=== PATIENT | male | born 1945 | race Caucasian/White ===

== ENCOUNTER 2021-01-03 10:11 | Outpatient (RCR) | payer MEDICARE, OTHER, SELFPAY | END 2021-01-03 23:59 | LOC: IMMUN 10:11 | PROVIDERS: PCP Internal Medicine; Referring Provider Family Medicine; Visit Provider Family Medicine | DX: Z23 Encounter for immunization (principal) | CPT/HCPCS: 0011A; 0012A ==

== ENCOUNTER 2021-01-08 17:06 | Emergency (ER) | payer MEDICARE, OTHER, SELFPAY ==
[2021-01-08 17:08] VITALS: BP 173/97; PULSE 76; RESP 15; TEMP 35.8; O2SAT 100; BMI 22.3
--- NOTE | 2021-01-08 17:28 | CT_ITS ---
STUDY: CT ABDOMEN AND PELVIS WITHOUT CONTRAST REASON FOR EXAM: Male, 75 years old. Left-sided abdominal pain. RADIATION DOSAGE (If Supplied By Facility): CTDIvol = ( 5.98 ) mGy, DLP = ( 268.31 ) mGycm TECHNIQUE: Transaxial images were obtained from the dome of the diaphragm to the symphysis pubis without oral contrast, and without intravenous contrast. Sagittal and coronal images were reconstructed. Individualized dose optimization techniques were used for this CT. COMPARISON: None. FINDINGS: The visualized lung bases are unremarkable. The visualized portions of the heart are within normal limits. There is a 6.5 x 6.2 x 5.8 cm cyst in segment 8 of the liver. Other small cysts are seen in segment 6. The liver is otherwise unremarkable. The gallbladder is well distended but otherwise unremarkable. There is no biliary ductal dilatation. Normal spleen. Normal pancreas. Normal bilateral adrenal glands. Normal right kidney. Normal right ureter Multiple small calcifications within the left kidney. This is most marked in the lower pole with the largest calcification measures 4 mm. There is a moderate to severe hydronephrosis and ureteral dilatation to just above the UVJ where there is a 7 mm calcification in the distal ureter. Normal visualized stomach. Normal small intestine. Normal colon. The appendix is visualized and appears normal. There is diffuse atherosclerotic calcification of the abdominal aorta, without a demonstrated aneurysm. Normal inferior vena cava. There is a small right psoas muscle. Distally, just above the inguinal region, it contains a fluid density area is seen on image 76 of series 2. Normal urinary bladder. The prostate is enlarged with central calcifications. Prominent seminal vesicles. There phleboliths in the pelvis without lymphadenopathy. No free air or free fluid is seen within the peritoneal cavity. There is a left inguinal hernia. There is evidence left hydrocele. Abdominal wall appears otherwise grossly normal there are degenerative changes and levoscoliosis of the thoracolumbar spine. There are degenerative changes left hip and evidence of a right total hip arthroplasty. CT/Abdomen/Pelvis without Cont IMPRESSION: 1. Calcification in the distal left ureter with moderate to marked left hydronephrosis. 2. Nonobstructing left renal calculi. 3. Enlarged prostate. 4. Large right hepatic cyst. 5. Left inguinal hernia. There is an associated left hydrocele. 6. Levoscoliosis and degenerative changes of the spine. Electronically Signed: Doug Yeager DO at 18:24 EST Tel [phone], Service support ,
--- NOTE | 2021-01-08 17:30 | ED.VIS.GEN ---
History of Present Illness Chief Complaint: Flank Pain Narrative: Patient presents with flank pain on the left for the past 2 days he is found to have some hematuria earlier on he has no fever chills cough or congestion the pain does radiate into his left lower abdominal pain. No testicle pain. Past medical history: Crohn's disease otherwise unremarkable Medications: Reviewed, mostly vitamins noncontributory Social history: Contributory Review of systems: All systems negative except as indicated General: Denies: Fever Eyes: Denies: Visual changes - bilaterally ENT: Denies: Rhinorrhea, Sore throat Cardiovascular: Denies: Chest pain Respiratory: Denies: Dyspnea, Cough Gastrointestinal: Abdominal pain as in HPI Back: Flank pain as in HPI Genitourinary: Denies: Dysuria Musculoskeletal: Denies: Myalgias Skin: Denies: Rash Neurological: Denies: Headache, no focal weakness Psych: Reports: negative Hematologic: Denies: Easy bruising, Easy bleeding Physical exam General: Well nourished, Well developed, he appears relatively comfortable in bed Head: Normocephalic, Atraumatic Eyes: Conjunctiva not pale ENT: Moist mucous membranes Neck: Supple, Nontender, No lymphadenopathy Cardiovascular: Regular rate, Regular rhythm Respiratory: No distress, CTA bilaterally Abdomen: Soft, left lower abdominal tenderness without any guarding or rebound Back: No spinal tenderness. Most of the pain is in the left CVA region Extremities: Nontender, No edema Skin: Normal color, No rash Neurological: Alert, Normal Strength, Normal Sensation Psychological: Normal affect Past Medical History - Allergies and Home Meds Allergies/Adverse Reactions: Allergies No Known Allergies Allergy (Verified 01/08/21 17:07) Primary Care Physician: Karin Holden MD [Primary Care Provider] - 3-5 Days Physical Exam Vital Signs/Narrative: Vital Signs Temp Pulse Resp BP Pulse Ox 01/08/21 17:08 96.5 F L 76 15 173/97 H 100 Diagnostic/Tx/Re-eval - Medical Decision Making Patient is found to have a 7 mm obstructing stone. He has hematuria but no UTI regardless he is on antibiotics per PCP. His pain is controlled I discussed with Dr. Dutta who can see the patient in the office tomorrow to plan for likely surgery. I will discharge the patient with analgesia. ED Disposition - Plan for ED Patient: Disposition: Home or Assisted Living Diagnosis: Kidney stone Instructions: ED Kidney Stone w/ Colic Prescriptions: Oxycodone HCl/Acetaminophen [Percocet 5/325] 1 tab PO Q6H PRN PRN 3 Days #12 tab PRN Reason: Pain Transmission Status: Received by [id number] Referrals: Abner Dutta MD [STAFF PHYSICIAN] - 1 Day
[2021-01-08] MEDS: Morphine 2 MG/ML Syringe IV (17:40)
[2021-01-08] MEDS: Ondansetron 4 MG/2 ML Vial IV (17:40)
[2021-01-08 17:50] LABS: Absolute Lymphocyte Count 2.25 X10^3/uL (0.83-4.51); Absolute Neutrophil Count 5.7 X10^3/uL (2.0-7.7); Basophil# 0.11 X10^3/uL; Basophil% 1.1 % (0-1); Eosinophil# 0.48 X10^3/uL; Hematocrit 43.3 % (40-54); Hemoglobin 13.7 g/dL (13.0-16.5); Lymphocyte # 2.25 X10^3/ul (4.0); Lymphocyte % 23.5 % (19-41); Mean Corp Hgb Conc 31.6 g/dL (32-36); Mean Corpuscular Hgb 28.2 pg (27.0-32.0); Mean Corpuscular Volume 89.3 fL (80-94); Mean Platelet Vol. 10.3 fl (6.2-12.0); Monocyte# 0.97 X10^3/uL; Monocyte% 10.1 % (0-10); NRBC Flagged by Analyzer 0 % (0-5); Neutrophil # 5.74 X10^3/uL (2.7-7.7); Neutrophil % 60.1 % (47-70); Platelet Count 185 K/mm3 (150-450); RBC Distribution Width CV 15.7 % (11.6-14.6); RBC Distribution Width SD 51.8 fl (35.1-43.9); Red Blood Count 4.85 M/mm3 (4.6-6.2); White Blood Count 9.6 K/mm3 (4.4-11.0)
[2021-01-08 18:13] LABS: ALB/GLOB Ratio 1.1 RATIO (0.9-2.4); AST(SGOT) 27 U/L (15-37); Alanine Aminotransfer ALT/SGPT 20 U/L (16-61); Albumin, Serum 3.7 g/dL (3.2-5.0); Alkaline Phosphatase 76 U/L (45-117); Anion Gap 5 (5-15); BUN 20 mg/dL (7-18); BUN/Creat Ratio 17.5 RATIO (10-20); Chloride 110 mmol/L (98-107); Creatinine, Serum 1.14 mg/dL (0.70-1.30); EST Glomerular Filtration Rate 67 mL/min (>60); Est Glom Filt Rate - Afr Amer 81 mL/min (>60); Estimated Creatinine Clearance 52.66 ml/min; Globulin 3.4 g/dL (2.2-4.2); Glucose 105 mg/dL (74-106); Lipase 139 U/L (73-393); Potassium 4.7 mmol/L (3.5-5.1); Protein, Total 7.1 g/dL (6.4-8.2); Sodium Level 142 mmol/L (136-145)
[2021-01-08 18:18] LABS: Bacteria 0 SEEN /hpf (None Seen); Mucous, Urine 0 SEEN /hpf (<or=2+); White Blood Cells 0 SEEN /hpf (0-5)
[2021-01-08 18:20] LABS: Color, Urine Yellow (Yellow); Glucose, Dipstick Normal (Normal); Ketone-Dipstick Negative (Negative); Leukocyte Esterase-Dipstick Negative /ul (Negative); Nitrite-Dipstick Negative (Negative); Occult Blood-Urine 50 /ul (Negative); Protein-Dipstick Negative (Negative); Urine Bilirubin Dipstick Negative (Negative); Urine Clarity Cloudy (Clear); Urine Urobilinogen Normal (Normal)
[2021-01-08 18:26] LABS: Amorphous Sediment 3+ PHOS; Red Blood Cells-Urine 0-5 SEEN /hpf (0-5); Squamous Epithelial Cells - UA 0-5 SEEN /hpf (0-5)
[2021-01-08] MEDS: Ketorolac 15 MG/ML Vial IV (19:10)
[2021-01-08] MEDS: HYDROmorphone 1 MG/ML Syringe IV (19:10)
== END 2021-01-08 19:36 | disposition home or self-care (01) ==
PROVIDERS: Emergency Provider Emergency Medicine; PCP Internal Medicine
DX: N20.0 Calculus of kidney (principal)
CPT/HCPCS: 74176; 80053; 81001; 83690; 85025; 96374; 96375; 99282; A4216; J2405

== ENCOUNTER → 2021-01-09 10:52 | Outpatient (CLI) | payer MEDICARE, OTHER, SELFPAY ==
[2021-01-08 17:08] VITALS: BMI 22.3
--- NOTE | 2021-01-09 10:56 | EKG12_ITS ---
Test Reason : PREOP Blood Pressure : / mmHG Vent. Rate : 068 BPM Atrial Rate : 068 BPM P-R Int : 146 ms QRS Dur : 098 ms QT Int : 380 ms P-R-T Axes : 061 075 067 degrees QTc Int : 404 ms Normal sinus rhythm Normal ECG Confirmed by MAURILIO BRADFORD, MARLA ([id number]), editor producer GORGE MORAN ([id number]) on 01/10/2021 8:58:54 AM Referred By: HAILEY Confirmed By:MARLA THORPE MD
== END ==
PROVIDERS: PCP Internal Medicine; Visit Provider Urology
DX: Z01.810 Encounter for preprocedural cardiovascular examination (principal); Z20.822 Contact with and (suspected) exposure to COVID-19
CPT/HCPCS: 87426; 93005; C9803

== ENCOUNTER 2021-01-13 00:09 | Observation (INO) | payer MEDICARE, OTHER, SELFPAY ==
[2021-01-13 00:09] VITALS: BP 163/90; PULSE 112; RESP 16; TEMP 36.4; O2SAT 97; BMI 22.8
--- NOTE | 2021-01-13 00:25 | ED.DCSUM_ITS ---
History of Present Illness Chief Complaint: Complaint Informant: Patient Onset: Today Narrative: Patient is a 75-year-old male presenting with difficulty urinating. Patient had lithotripsy today with Dr. Dutta has stent placed. Since the procedure at 2 PM he is not been able to void. He feels pressure and the need to urinate. He has had a small amount of blood from his penis. He has associated discomfort. He denies any history of urinary retention. He denies any significant history of any prostate abnormalities. No other complaints at this time. Past Medical History - Allergies and Home Meds Allergies/Adverse Reactions: Allergies No Known Allergies Allergy (Verified 01/13/21 00:13) Past Medical History: - - Crohn's disease, kidney stones Surgical History: colectomy, - - Lithotripsy Smoking Status: Never smoker Review of Systems General: Denies: Chills, Fever, Sweats Eyes: Denies: Visual changes - bilaterally, Diplopia ENT: Denies: Rhinorrhea, Sore throat Cardiovascular: Denies: Chest pain, Palpitations Respiratory: Denies: Dyspnea, Cough, Dyspnea on exertion Gastrointestinal: Reports: Abdominal pain. Denies: Nausea, Vomiting, Diarrhea, Melena, Hematochezia Genitourinary: Reports: Hematuria, - - Urinary retention. Denies: Dysuria, Frequency Musculoskeletal: Denies: Back pain, Extremity Pain Skin: Denies: Rash, Wounds Neurological: Denies: Headache, Weakness, Numbness Physical Exam Vital Signs/Narrative: Vital Signs Temp Pulse Resp BP Pulse Ox 01/13/21 00:09 97.6 F L 112 H 16 163/90 H 97 Inital Vital Signs reviewed: Yes General: Well developed, No Acute Distress Head: Normocephalic, Atraumatic Eyes: Perrl, EOMI ENT: Moist mucous membranes, No rhinorrhea Neck: Supple, Nontender Cardiovascular: Regular rate, Regular rhythm, No murmurs Respiratory: No distress, CTA bilaterally, Chest nontender Abdomen: Soft, Nondistended, Normal bowel sounds, Tender - Suprapubic region Back: Nontender, Normal Inspection. Negative for: CVA tenderness Extremities: Nontender, No edema Skin: Normal color, No rash Neurological: Alert, Oriented x3, Cranial nerves II-XII grossly intact, Normal Strength, Normal Sensation Psychological: Normal affect, Normal Mood Diagnostic/Tx/Re-eval Laboratory Data 01/13/21 01/13/21 01/13/21 00:30 00:40 00:40 WBC Cancelled Corrected WBC Cancelled RBC Cancelled Hgb Cancelled Hct Cancelled MCV Cancelled MCH Cancelled MCHC Cancelled RDW Std Deviation Cancelled RDW Coeff of Tiffany Cancelled Plt Count Cancelled MPV Cancelled Immature Gran % (Auto) Cancelled Neut % (Auto) Cancelled Lymph % (Auto) Cancelled [place] % (Auto) Cancelled Eos % (Auto) Cancelled Baso % (Auto) Cancelled Absolute Neuts (auto) Cancelled Absolute Lymphs (auto) Cancelled Total Counted Cancelled Neutrophils % (Manual) Cancelled Band Neutrophils % Cancelled Lymphocytes % (Manual) Cancelled Monocytes % (Manual) Cancelled Eosinophils % (Manual) Cancelled Basophils % (Manual) Cancelled Metamyelocytes % Cancelled Myelocytes % Cancelled Promyelocytes % Cancelled Blast Cells % Cancelled Plasma Cell % (Manual) Cancelled Other Cells % Cancelled Nucleated RBC % Cancelled Nucleated RBCs/100 WBC Cancelled Differential Comment Cancelled Diff Path Review Cancelled Hypersegmented Neuts Cancelled Atypical Lymphocytes Cancelled Reactive Lymphocytes Cancelled Smudge Cells Cancelled Toxic Granulation Cancelled Toxic Vacuolation Cancelled Dohle Bodies Cancelled Navarro Rods Cancelled Platelet Estimate Cancelled Plt Morphology Comment Cancelled RBC Morphology Cancelled Polychromasia Cancelled Hypochromasia Cancelled Poikilocytosis Cancelled Basophilic Stippling Cancelled Anisocytosis Cancelled Microcytosis Cancelled Macrocytosis Cancelled Spherocytes Cancelled Sickle Cells Cancelled Target Cells Cancelled Tear Drop Cells Cancelled Ovalocytes Cancelled Stomatocytes Cancelled [place]ocha[place] Bodies Cancelled [place] Cells Cancelled Bite Cells Cancelled Crenated Cell Cancelled Acanthocytes (Spur) Cancelled Rouleaux Cancelled Schistocytes Cancelled Sodium 133 L Potassium 5.5 H Chloride 102 Carbon Dioxide 22.0 Anion Gap 9 BUN 32 H Creatinine 2.43 H Estim Creat Clear Calc 25.37 Est GFR (MDRD) Af Amer 34 L Est GFR (MDRD) Non-Af 28 L BUN/Creatinine Ratio 13.2 Glucose 138 H Calcium 9.1 Urine Color Yellow Urine Clarity Cloudy Urine pH 6.0 Ur Specific [place] 1.010 Urine Protein 30 H Urine Glucose (UA) Normal Urine Ketones Negative Urine Occult Blood 250 H Urine Nitrite Negative Urine Bilirubin Negative Urine Urobilinogen Normal Ur Leukocyte Esterase 100 H Urine RBC 10-25 SEEN Urine WBC 50-100 SEEN Ur Squamous Epith Cells 0 SEEN Urine Bacteria 1+ Urine Mucus 0 SEEN - Medical Decision Making Patient evaluated for decreased urination. Patient had lithotripsy with stent placements performed by urology today. Since his procedure he is not been able to urinate. He has discomfort in his lower abdomen. He notes he really has not had anything to drink since yesterday because he was kept n.p.o. after midnight. Patient denies any other complaints at this time. Clemens catheter is placed for concern of acute urinary retention given his recent anesthesia. Patient does not have a significant amount of urine output and it is quite dark. I did check BMP which is remarkable for an elevated creatinine. Is more than double what his creatinine was 2 days ago. Patient does appear dehydrated. He is given IV fluids. His CBC does show leukocytosis however not sure how much of this is reactive from his recent procedure versus infectious. Given the leukocytosis however I did cover with a dose of IV Rocephin. Given that patient does meet SIRS criteria I did add on a lactate as well as blood cultures. I suspect the source is urine. Urinalysis shows 100 esterase and 50-100 white blood cells with 1+ bacteria but again, this could be reactive given his procedure earlier today. Case is discussed with his urologist who is agreeable with admission. Urine culture sent. Patient is agreeable with plan of care. He is stable for the general medical floor at time of disposition. ED Disposition - Plan for ED Patient: Disposition: Acute Care Hospital [facility] Diagnosis: LB (acute kidney injury)
[2021-01-13 00:34] LABS: Mucous, Urine 0 SEEN /hpf (<or=2+); Squamous Epithelial Cells - UA 0 SEEN /hpf (0-5)
[2021-01-13 00:36] LABS: Color, Urine Yellow (Yellow); Glucose, Dipstick Normal (Normal); Ketone-Dipstick Negative (Negative); Leukocyte Esterase-Dipstick 100 /ul (Negative); Nitrite-Dipstick Negative (Negative); Occult Blood-Urine 250 /ul (Negative); Protein-Dipstick 30 mg/dl (Negative); Urine Bilirubin Dipstick Negative (Negative); Urine Clarity Cloudy (Clear); Urine Urobilinogen Normal (Normal)
[2021-01-13 00:52] VITALS: RESP 18
[2021-01-13 00:53] LABS: Bacteria 1+ /hpf (None Seen); Red Blood Cells-Urine 10-25 SEEN /hpf (0-5); White Blood Cells 50-100 SEEN /hpf (0-5)
[2021-01-13 01:05] LABS: Anion Gap 9 (5-15); BUN 32 mg/dL (7-18); BUN/Creat Ratio 13.2 RATIO (10-20); Calcium,Total 9.1 mg/dL (8.5-10.1); Chloride 102 mmol/L (98-107); Creatinine, Serum 2.43 mg/dL (0.70-1.30); EST Glomerular Filtration Rate 28 mL/min (>60); Est Glom Filt Rate - Afr Amer 34 mL/min (>60); Estimated Creatinine Clearance 25.37 ml/min; Glucose 138 mg/dL (74-106); Potassium 5.5 mmol/L (3.5-5.1); Sodium Level 133 mmol/L (136-145)
[2021-01-13 01:58] LABS: Absolute Lymphocyte Count 0.64 X10^3/uL (0.83-4.51); Absolute Neutrophil Count 12.5 X10^3/uL (2.0-7.7); Basophil# 0.02 X10^3/uL; Basophil% 0.1 % (0-1); Hematocrit 40.8 % (40-54); Hemoglobin 13.4 g/dL (13.0-16.5); Lymphocyte # 0.64 X10^3/ul (4.0); Lymphocyte % 4.6 % (19-41); Mean Corp Hgb Conc 32.8 g/dL (32-36); Mean Corpuscular Hgb 29.1 pg (27.0-32.0); Mean Corpuscular Volume 88.7 fL (80-94); Mean Platelet Vol. 10.1 fl (6.2-12.0); Monocyte# 0.79 X10^3/uL; Monocyte% 5.6 % (0-10); NRBC Flagged by Analyzer 0 % (0-5); Neutrophil # 12.53 X10^3/uL (2.7-7.7); Neutrophil % 89.3 % (47-70); Platelet Count 184 K/mm3 (150-450); RBC Distribution Width CV 15.7 % (11.6-14.6); RBC Distribution Width SD 51.1 fl (35.1-43.9)
[2021-01-13] MEDS: 0.9% Normal Saline 1,000 ML 999 ML IV (02:03)
[2021-01-13 02:06] VITALS: BP 151/84; PULSE 89; RESP 16; TEMP 36.6; O2SAT 99
[2021-01-13] MEDS: Ceftriaxone 1 GM/50 ML BAG IV (03:27)
[2021-01-13] MEDS: 0.9% Normal Saline 1,000 ML 150 ML IV (03:58)
[2021-01-13 04:04] VITALS: BMI 22.1
[2021-01-13 04:12] VITALS: BMI 22.1
[2021-01-13 04:17] VITALS: BP 141/87; PULSE 97; RESP 16; TEMP 36.8; O2SAT 99
[2021-01-13] MEDS: Acetaminophen 500 MG Tablet PO (04:32)
[2021-01-13 04:58] LABS: Lactic Acid 1.6 mmol/L (0.4-1.9)
[2021-01-13 06:40] LABS: Absolute Lymphocyte Count 1.23 X10^3/uL (0.83-4.51); Absolute Neutrophil Count 12.7 X10^3/uL (2.0-7.7); Basophil# 0.03 X10^3/uL; Basophil% 0.2 % (0-1); Eosinophil# 0.01 X10^3/uL; Eosinophils% 0.1 % (0-5); Hemoglobin 11.8 g/dL (13.0-16.5); Lymphocyte # 1.23 X10^3/ul (4.0); Lymphocyte % 7.9 % (19-41); Mean Corp Hgb Conc 31.9 g/dL (32-36); Mean Corpuscular Hgb 28.4 pg (27.0-32.0); Mean Corpuscular Volume 89.2 fL (80-94); Mean Platelet Vol. 9.8 fl (6.2-12.0); Monocyte# 1.53 X10^3/uL; Monocyte% 9.9 % (0-10); NRBC Flagged by Analyzer 0 % (0-5); Neutrophil # 12.67 X10^3/uL (2.7-7.7); Neutrophil % 81.5 % (47-70); POSITIVE DIFFERENTIAL YES; Platelet Count 165 K/mm3 (150-450); RBC Distribution Width CV 15.9 % (11.6-14.6); RBC Distribution Width SD 51.9 fl (35.1-43.9); Red Blood Count 4.15 M/mm3 (4.6-6.2); White Blood Count 15.5 K/mm3 (4.4-11.0)
[2021-01-13 06:57] LABS: Differential Indicated SCAN CRITERIA MET
[2021-01-13 07:04] LABS: Anion Gap 6 (5-15); BUN 23 mg/dL (7-18); BUN/Creat Ratio 14.8 RATIO (10-20); Calcium,Total 8.4 mg/dL (8.5-10.1); Chloride 110 mmol/L (98-107); Creatinine, Serum 1.55 mg/dL (0.70-1.30); EST Glomerular Filtration Rate 47 mL/min (>60); Est Glom Filt Rate - Afr Amer 57 mL/min (>60); Estimated Creatinine Clearance 38.46 ml/min; Glucose 115 mg/dL (74-106); Potassium 4.8 mmol/L (3.5-5.1); Sodium Level 140 mmol/L (136-145)
--- NOTE | 2021-01-13 08:59 | HP.PCM_ITS ---
History of Present Illness Date of Admission: 01/13/21 Chief Complaint: Dehydration urinary retention high The patient is a 75 year old male who underwent lithotripsy yesterday presented to the hospital with retention of urine his creatinine is up to 2.5 but this morning the creatinine down to 1.5 urine is in a nice and clear color good urine output he looks stable. Past Medical History Allergies No Known Allergies Allergy (Verified 01/13/21 00:13) Home Medications: Ambulatory Orders Medication Instructions Recorded Cholecalciferol (Vitamin D3) 10 mcg PO DAILY 01/08/21 [Vitamin D3] Multivitamin 1 ea PO DAILY 01/08/21 Sulfamethoxazole/Trimethoprim 1 ea PO DAILY 01/08/21 [Sulfamethoxazole-Tmp Ds Tablet] Oxycodone [Oxyir] 5 mg PO Q4H PRN PRN 01/13/21 Surgical History: colectomy, - - Lithotripsy Smoking Status: Never smoker Tobacco Use: Non-smoker Review of Systems Constitutional: Denies: Chills, Fever, Weight Change HEENT: Denies: Head Aches, Sinus Congestion, Sinus Drainage Cardiovascular: Denies: Chest Pain, Palpitations Respiratory: Denies: Cough, Shortness of breath at rest, Sputum production Gastrointestinal: Denies: Abdominal Pain, Nausea, Vomiting Genitourinary: Denies: Dysuria Musculoskeletal: Denies: Joint Pain, Joint Tenderness Skin: Denies: Rash, Wounds Neurological: Denies: Numbness, Tingling, Focal weakness Psychiatric: Denies: Anxiety, Depression, Homicidal Ideations, Suicidal Ideations Hematologic/ Lymphatic: Denies: Easy Bruising, Easy Bleeding VTE Information - Inpt Only VTE Present on Admission: No VTE Mechan Device Prophylaxis: SCD's Patient Problems: Active and Suspected Problems LB (acute kidney injury) (Acute) - Physical Exam Vitals/I&O's: Vital Signs Temp Pulse Resp BP Pulse Ox 98.3 F 97 16 141/87 H 99 01/13/21 04:17 01/13/21 04:17 01/13/21 04:17 01/13/21 04:17 01/13/21 04:17 Oxygen Delivery Method Room Air Weight: 66.026 kg Body Mass Index (BMI) 22.1 Intake and Output for Last 24 Hours 01/11/21 01/12/21 01/13/21 23:59 23:59 23:59 Intake Total 1050 / 1050 Balance 1050 / 1050 General: Alert, Oriented x3, Cooperative HEENT: Atraumatic, PERRLA, EOMI, Normocephalic Neck: Supple, No JVD, Negative Carotid Bruits Lungs: Clear to auscultation, Normal air movement Cardiovascular: Regular rate, No murmurs Abdomen: Bowel Sounds Present, Soft, Non Tender Extremities: No edema, Capillary Refill Less than 3 Seconds Skin: No rashes, No breakdown Musculoskeletal: No Tenderness to Palpation of Joints or Extremities Neurological: Cranial nerves II-XII grossly intact Psych/Mental Status: Normal Affect, Appropriate Laboratory Results 01/13/21 00:30: Urine Color Yellow, Urine Clarity Cloudy, Urine pH 6.0, Ur Specific [place] 1.010, Urine Protein 30 H, Urine Glucose (UA) Normal, Urine Ketones Negative, Urine Occult Blood 250 H, Urine Nitrite Negative, Urine Bilirubin Negative, Urine Urobilinogen Normal, Ur Leukocyte Esterase 100 H, Urine RBC 10-25 SEEN, Urine WBC 50-100 SEEN, Ur Squamous Epith Cells 0 SEEN, Urine Bacteria 1+, Urine Mucus 0 SEEN 01/13/21 00:40: WBC Cancelled, Corrected WBC Cancelled, RBC Cancelled, Hgb Cancelled, Hct Cancelled, MCV Cancelled, MCH Cancelled, MCHC Cancelled, RDW Std Deviation Cancelled, RDW Coeff of Tiffany Cancelled, Plt Count Cancelled, MPV Cancelled, Immature Gran % (Auto) Cancelled, Neut % (Auto) Cancelled, Lymph % (Auto) Cancelled, Coffee % (Auto) Cancelled, Eos % (Auto) Cancelled, Baso % (Auto) Cancelled, Absolute Neuts (auto) Cancelled, Absolute Lymphs (auto) Cancelled, Total Counted Cancelled, Neutrophils % (Manual) Cancelled, Band Neutrophils % Cancelled, Lymphocytes % (Manual) Cancelled, Monocytes % (Manual) Cancelled, Eosinophils % (Manual) Cancelled, Basophils % (Manual) Cancelled, Metamyelocytes % Cancelled, Myelocytes % Cancelled, Promyelocytes % Cancelled, Blast Cells % Cancelled, Plasma Cell % (Manual) Cancelled, Other Cells % Cancelled, Nucleated RBC % Cancelled, Nucleated RBCs/100 WBC Cancelled, Differential Comment Cancelled, Diff Path Review Cancelled, Hypersegmented Neuts Cancelled, Atypical Lymphocytes Cancelled, Reactive Lymphocytes Cancelled, Smudge Cells Cancelled, Toxic Granulation Cancelled, Toxic Vacuolation Cancelled, Dohle Bodies Cancelled, Navarro Rods Cancelled, Platelet Estimate Cancelled, Plt Morphology Comment Cancelled, RBC Morphology Cancelled, Polychromasia Cancelled, Hypochromasia Cancelled, Poikilocytosis Cancelled, Basophilic Stippling Cancelled, Anisocytosis Cancelled, Microcytosis Cancelled, Macrocytosis Cancelled, Spherocytes Cancelled, Sickle Cells Cancelled, Target Cells Cancelled, Tear Drop Cells Cancelled, Ovalocytes Cancelled, Stomatocytes Cancelled, [place]ocha-[place] Bodies Cancelled, [place] Cells Cancelled, Bite Cells Cancelled, Crenated Cell Cancelled, Acanthocytes (Spur) Cancelled, Rouleaux Cancelled, Schistocytes Cancelled 01/13/21 00:40: Sodium 133 L, Potassium 5.5 H, Chloride 102, Carbon Dioxide 22.0, Anion Gap 9, BUN 32 H, Creatinine 2.43 H, Estim Creat Clear Calc 25.37, Est GFR (MDRD) Af Amer 34 L, Est GFR (MDRD) Non-Af 28 L, BUN/Creatinine Ratio 13.2, Glucose 138 H, Calcium 9.1 01/13/21 01:50: WBC 14.0 H, RBC 4.60, Hgb 13.4, Hct 40.8, MCV 88.7, MCH 29.1, MCHC 32.8, RDW Std Deviation 51.1 H, RDW Coeff of Tiffany 15.7 H, Plt Count 184, MPV 10.1, Immature Gran % (Auto) 0.400, Neut % (Auto) 89.3 H, Lymph % (Auto) 4.6 L, Coffee % (Auto) 5.6, Eos % (Auto) 0.0, Baso % (Auto) 0.1, Absolute Neuts (auto) 12.5 H, Absolute Lymphs (auto) 0.64 L, Nucleated RBC % 0 01/13/21 03:23: Lactic Acid Cancelled 01/13/21 04:03: Lactic Acid 1.6 01/13/21 06:21: WBC 15.5 H, RBC 4.15 L, Hgb 11.8 L, Hct 37.0 L, MCV 89.2, MCH 28.4, MCHC 31.9 L, RDW Std Deviation 51.9 H, RDW Coeff of Tiffany 15.9 H, Plt Count 165, MPV 9.8, Immature Gran % (Auto) 0.400, Neut % (Auto) 81.5 H, Lymph % (Auto) 7.9 L, Coffee % (Auto) 9.9, Eos % (Auto) 0.1, Baso % (Auto) 0.2, Absolute Neuts (auto) 12.7 H, Absolute Lymphs (auto) 1.23, Nucleated RBC % 0 01/13/21 06:21: Sodium 140, Potassium 4.8, Chloride 110 H, Carbon Dioxide 24.0, Anion Gap 6, BUN 23 H, Creatinine 1.55 H, Estim Creat Clear Calc 38.46, Est GFR (MDRD) Af Amer 57 L, Est GFR (MDRD) Non-Af 47 L, BUN/Creatinine Ratio 14.8, Glucose 115 H, Calcium 8.4 L Current Medications Acetaminophen (Acetaminophen 500 Mg Tablet) 500 mg PO Q6H PRN PRN PRN Reason: Pain Score 1-10 Last Admin: 01/13/21 04:32 Dose: 500 mg Documented by: Sodium Chloride () 1,000 mls @ 150 mls/hr IV .[id number] Last Admin: 01/13/21 03:58 Dose: 150 mls/hr Documented by: Sodium Chloride () 250 mls @ 15 mls/hr IV .[id number] PRN PRN Reason: Saline Flush Sodium Chloride (0.9% Saline Lock 10 Ml Syringe) 10 - 40 ml IV UD PRN PRN Reason: SALINE FLUSH Assessment/Plan All Active Problems LB (acute kidney injury) (Acute) Admitted overnight for dehydration and retention of urine screens back to normal you are making good urine no pain no problems discharge home today with Flomax follow-up in the office next week for catheter removal. He will go home with a Clemens leg bag.
--- NOTE | 2021-01-13 09:01 | DCINST_ITS ---
Discharge Diet: Light diet - advance as tolerated Discharge Activity: Return to Normal Activity Call your doctor if you observe: Fever of 101 or Higher Suture Line Care: Avoid Pulling/Pushing, Avoid Pinching/Bending Additional Instructions: resume all your medications home with gomes to leg bag follow up in office to remove gomes new rx for Flomax to help prostate. Allergies/Adverse Reactions: Allergies No Known Allergies Allergy (Verified 01/13/21 00:13) Medications to take at Discharge Cholecalciferol (Vitamin D3) [Vitamin D3] 10 mcg PO DAILY 01/08/21 Multivitamin 1 ea PO DAILY 01/08/21 Tamsulosin HCl [Flomax] 0.4 mg PO DAILY #20 cap 01/13/21 Primary Care Physician: Karin Hloden MD [Primary Care Provider] - Test Results: Test results from this visit will be discussed in further detail at your follow- up appointment, if applicable. Please Follow Up With: Abner Dutta MD When: please call to make an appointment.
[2021-01-13 09:22] VITALS: BP 158/92; PULSE 92; RESP 16; TEMP 36.8; O2SAT 98
[2021-01-13 09:32] LABS: Differential Comment SCANNED
[2021-01-16 10:09] LABS: Pathologist Review Reviewed
== END 2021-01-13 12:48 | disposition home or self-care (01) ==
LOC: ED 01:21 → MS3 01:49
PROVIDERS: Admitting Provider Urology; Emergency Provider Emergency Medicine; PCP Internal Medicine; Visit Provider Urology
DX: N17.9 Acute kidney failure, unspecified (principal); E86.0 Dehydration; R33.9 Retention of urine, unspecified; K50.90 Crohn's disease, unspecified, without complications; Z87.442 Personal history of urinary calculi; Z79.899 Other long term (current) drug therapy; Z98.890 Other specified postprocedural states
CPT/HCPCS: 36415; 51702; 80048; 81001; 83605; 85025; 87040; 87086; 96361; 96365; 99218; 99284; J7030; A4216; G0378

== ENCOUNTER → 2022-05-30 | Outpatient (CLI) | payer MEDICARE, OTHER, SELFPAY ==
[2022-05-30 11:35] LABS: PSA,Total - Annual Screen 3.69 ng/mL (0.00-4.00)
== END | disposition home or self-care (01) ==
LOC: LAB 10:46
PROVIDERS: PCP Internal Medicine; Referring Provider Urology; Visit Provider Urology
DX: Z12.5 Encounter for screening for malignant neoplasm of prostate (principal)
CPT/HCPCS: 36415; 84153; G0103

== ENCOUNTER → 2023-06-03 | Outpatient (CLI) | payer MEDICARE, OTHER, SELFPAY | END | disposition home or self-care (01) | LOC: LAB 11:24 | PROVIDERS: PCP Internal Medicine; Referring Provider Urology; Visit Provider Urology | DX: R97.20 Elevated prostate specific antigen [PSA] (principal) | CPT/HCPCS: 36415; 84153 ==

== ENCOUNTER → 2024-06-08 | Outpatient (CLI) | payer MEDICARE, OTHER, SELFPAY ==
[2024-06-08 12:15] LABS: PSA,Total - Annual Screen 3.16 ng/mL (0.00-4.00)
== END | disposition home or self-care (01) ==
LOC: LAB 11:11
PROVIDERS: PCP Internal Medicine; Referring Provider Nurse Practitioner; Visit Provider Nurse Practitioner
DX: Z12.5 Encounter for screening for malignant neoplasm of prostate (principal)
CPT/HCPCS: 36415; 84153; G0103

== ENCOUNTER → 2025-06-09 | Outpatient (CLI) | payer MEDICARE, OTHER, SELFPAY ==
[2025-06-09 13:02] LABS: PSA,Total- Diagnostic 3.35 ng/mL (0.00-4.00)
== END | disposition home or self-care (01) ==
LOC: LAB 10:45
PROVIDERS: PCP Internal Medicine; Referring Provider Urology; Visit Provider Urology
DX: N40.1 Benign prostatic hyperplasia with lower urinary tract symptoms (principal)
CPT/HCPCS: 36415; 84153